=== PATIENT | male | born 1940 | race Caucasian/White ===

== ENCOUNTER → 2020-02-08 14:41 | Outpatient (CLI) | payer OTHER, SELFPAY ==
--- NOTE | 2020-02-08 14:45 | DI.CT.S_ITS ---
PROCEDURE: CT HEAD/BRAIN WO CON INDICATIONS: Unspecified injury of head, initial encounter TECHNIQUE: Noncontrast 4.5 mm thick angled axial sections acquired from the foramen magnum to the vertex, with coronal and sagittal reformats. For radiation dose reduction, the following was used: automated exposure control, adjustment of mA and/or kV according to patient size. COMPARISON: [facility], CT, CT BRAIN WO CON, 04/11/2016, 5:28. FINDINGS: Image quality: Diagnostic. CSF spaces: Basal cisterns are patent. No extra-axial fluid collections. Ventricles are prominent with associated parenchymal volume loss, similar to the prior study. Brain: No midline shift. No intracranial masses or hemorrhage. Henriquez-white matter interface is normal. Areas of low attenuation are seen within the periventricular and deep white matter of the supratentorial brain. Skull and face: Calvarium and visualized facial bones are intact, without suspicious lesions. Sinuses: Visualized sinuses and mastoids are clear. IMPRESSION: Stable head CT. No acute intracranial hemorrhage. Dictated by: Rj Phoenix M.D. on 02/08/2020 at 14:21 Approved by: Rj Phoenix M.D. on 02/08/2020 at 14:22
== END ==
PROVIDERS: PCP Internal Medicine; Referring Provider Physician Assistant; Visit Provider Physician Assistant
DX: S09.90XA Unspecified injury of head, initial encounter (principal); X58.XXXA Exposure to other specified factors, initial encounter
CPT/HCPCS: 70450

== ENCOUNTER → 2020-05-22 09:24 | Outpatient (CLI) | payer OTHER, SELFPAY ==
[2020-05-22 10:46] LABS: Alanine Aminotransferase 19 IU/L (<50); Albumin 4.4 g/dL (3.5-5.0); Albumin Globulin Ratio 1.4 (1.0-2.8); Alkaline Phosphatase 89 U/L (38-126); Aspartate Aminotransferase 44 IU/L (17-59); BUN Creatinine Ratio 16.5 (6-22); Bilirubin Total 1.5 mg/dL (0.2-1.3); Blood Urea Nitrogen 16 mg/dL (9-20); Calcium 8.7 mg/dL (8.4-10.2); Carbon Dioxide 28 mmol/L (22-32); Chloride 107 mmol/L (98-107); Cholesterol 141 mg/dL (140-199); Estimated Glomerular Filt Rate > 60.0 mL/min (>60); Globulin 3.1 g/dL (1.7-4.1); Glucose 96 mg/dL (80-110); HDL Cholesterol 69 mg/dL (40-60); LDL Cholesterol Calculated 63 mg/dL (<100); Sodium 137 mmol/L (137-145); Total Protein 7.5 g/dL (6.3-8.2); Triglycerides 45 mg/dL (35-150)
[2020-05-22 11:37] LABS: HEMOLYSIS 53 (0-50)
[2020-05-22 11:44] LABS: Potassium 6.9 mmol/L (3.4-5.1)
[2020-05-22 11:59] LABS: Add Manual Diff / Slide Review YES; Mean Corpuscular Hemoglobin 34.3 PG (26-34); Mean Corpuscular Volume 101.3 fL (80-100); Platelet Count 183 X10^3/uL (150-400); Red Blood Cell Count 3.55 X10^6/uL (4.5-5.9); Red Cell Distribution Width 13.9 % (11.6-14.8); White Blood Cell Count 5.1 X10^3/uL (4.5-11.0)
[2020-05-22 12:00] LABS: Hematocrit 35.9 % (41-53); Hemoglobin 12.2 g/dL (13.5-17.5); Mean Corpuscular HGB Conc 33.9 % (30-36)
[2020-05-22 12:06] LABS: Neutrophils Absolute Manual 1785 /uL (3000-5900); Total Cells Counted 100
[2020-05-22 12:07] LABS: Macrocytosis 1+
== END ==
PROVIDERS: PCP Internal Medicine; Referring Provider Internal Medicine; Visit Provider Internal Medicine
DX: Z00.00 Encounter for general adult medical examination without abnormal findings (principal); I48.91 Unspecified atrial fibrillation; M15.0 Primary generalized (osteo)arthritis; C61 Malignant neoplasm of prostate
CPT/HCPCS: 36415; 80053; 80061; 84153; 85025

== ENCOUNTER → 2020-05-24 08:47 | Outpatient (CLI) | payer OTHER, SELFPAY ==
[2020-05-24 09:24] LABS: Reticulocyte Count, Percent 2.1 % (0.87-2.60)
[2020-05-24 09:28] LABS: HEMOLYSIS < 15 (0-50); Iron 111 ug/dL (49-181)
[2020-05-24 09:38] LABS: Percent Iron Saturation 36 % (20-50); Total Iron Binding Capacity 307 ug/dL (261-462); Transferrin 227 mg/dL (206-381)
[2020-05-24 10:28] LABS: Folate 11.6 ng/mL (2.76-20.0); Vitamin B12 250 pg/mL (239-931)
== END ==
PROVIDERS: PCP Internal Medicine; Referring Provider Internal Medicine; Visit Provider Internal Medicine
DX: D64.9 Anemia, unspecified (principal)
CPT/HCPCS: 36415; 82607; 82746; 83540; 83550; 85045

== ENCOUNTER → 2020-11-10 15:35 | Outpatient (CLI) | payer OTHER, SELFPAY ==
[2020-11-11 11:59] LABS: Basophils Absolute Auto 100 /uL (0-100); Basophils Percent Auto 1.1 % (0-2); Eosinophils Absolute Auto 100 /uL (0-450); Eosinophils Percent Auto 2.1 % (2-4); Hematocrit 22.8 % (41-53); Hemoglobin 12.1 g/dL (13.5-17.5); Lymphocytes Absolute Auto 1800 /uL (1100-4500); Lymphocytes Percent Auto 34.4 % (25-40); Mean Corpuscular HGB Conc 52.9 % (30-36); Mean Corpuscular Hemoglobin 71.3 PG (26-34); Monocytes Absolute Auto 700 /uL (0-900); Monocytes Percent Auto 13.2 % (3-14); Neutrophils Absolute Auto 2600 /uL (1500-7000); Neutrophils Percent Auto 49.2 % (50-75); Platelet Count 197 X10^3/uL (150-400); Red Blood Cell Count 1.69 X10^6/uL (4.5-5.9); Red Cell Distribution Width 13.9 % (11.6-14.8); White Blood Cell Count 5.3 X10^3/uL (4.5-11.0)
[2020-11-11 13:23] LABS: Add Manual Diff / Slide Review SLIDE REVIEW
[2020-11-11 14:21] LABS: Rouleaux 2+
[2020-11-11 14:24] LABS: Polychromasia 2+
[2020-11-11 14:26] LABS: Mean Corpuscular Volume 134.7 fL (80-100)
== END ==
PROVIDERS: PCP Internal Medicine; Referring Provider Internal Medicine; Visit Provider Internal Medicine
DX: I48.91 Unspecified atrial fibrillation (principal); D64.9 Anemia, unspecified
CPT/HCPCS: 85025

== ENCOUNTER → 2020-11-17 10:13 | Outpatient (CLI) | payer OTHER, SELFPAY ==
[2020-11-17 11:54] LABS: HEMOLYSIS < 15 (0-50); Iron 120 ug/dL (49-181)
[2020-11-17 12:05] LABS: Percent Iron Saturation 38 % (20-50); Total Iron Binding Capacity 317 ug/dL (261-462); Transferrin 249 mg/dL (206-381)
[2020-11-17 12:24] LABS: Basophils Absolute Auto 100 /uL (0-100); Basophils Percent Auto 1.7 % (0-2); Eosinophils Absolute Auto 100 /uL (0-450); Eosinophils Percent Auto 1.9 % (2-4); Hemoglobin 12.1 g/dL (13.5-17.5); Lymphocytes Absolute Auto 1800 /uL (1100-4500); Lymphocytes Percent Auto 35.9 % (25-40); Monocytes Absolute Auto 600 /uL (0-900); Monocytes Percent Auto 12.7 % (3-14); Neutrophils Absolute Auto 2400 /uL (1500-7000); Neutrophils Percent Auto 47.8 % (50-75); Red Cell Distribution Width 15.7 % (11.6-14.8)
[2020-11-17 12:26] LABS: Ferritin 143 ng/mL (18-464)
[2020-11-17 12:56] LABS: Folate 13.7 ng/mL (2.76-20.0); Vitamin B12 269 pg/mL (239-931)
[2020-11-17 13:32] LABS: Add Manual Diff / Slide Review SLIDE REVIEW
[2020-11-17 14:00] LABS: Platelet Estimate Adequate on smear
[2020-11-17 14:02] LABS: Rouleaux 3+
[2020-11-17 14:04] LABS: Platelet Count 174 X10^3/uL (150-400)
== END ==
PROVIDERS: PCP Internal Medicine; Referring Provider Internal Medicine; Visit Provider Internal Medicine
DX: D64.9 Anemia, unspecified (principal); I48.91 Unspecified atrial fibrillation
CPT/HCPCS: 36415; 82607; 82728; 82746; 83540; 83550; 85025

== ENCOUNTER 2022-05-24 10:58 | Emergency (ER) | payer OTHER, SELFPAY ==
[2022-05-24 11:14] VITALS: BP 158/96; PULSE 85; RESP 15; TEMP 36; O2SAT 99; BMI 25.4
--- NOTE | 2022-05-24 12:19 | ED.EPISTAXIS ---
HPI - Epistaxis <YARELY Dunbar - Last Filed: 05/24/22 12:25> General Chief complaint: Nasal Problem Stated complaint: Nose bleed over 1hr Time Seen by Provider: 05/24/22 12:02 Source: patient Mode of arrival: Ambulatory History of Present Illness HPI Narrative: This is a 81-year-old male with history of atrial fibrillation and chronic anticoagulation on 20 mg of Xarelto daily who presents to the emergency department with right-sided epistaxis which started while he was at his ophthalmology appointment 1 hour prior. His primary care provider is Dr. Alem zavala, he states that he became congested with the smoke in the air 1 week ago and had some crusting nasal discharge which he picked and started on nosebleed last night. He states it took a long time to get this to stop. He denies any other inappropriate bleeding. Related Data Allergies Allergy/AdvReac Type Severity Reaction Status Date / Time No Known Drug Allergies Allergy Verified 05/24/22 11:14 Review of Systems <YARELY Dunbar - Last Filed: 05/24/22 12:25> Review of Systems Narrative: Review of systems is negative for acute abnormalities unless otherwise noted in HPI Patient History <YARELY Dunbar - Last Filed: 05/24/22 12:25> Social History Smoking Status: Unknown if ever smoked Smoking Status: Unknown if ever smoked alcohol intake frequency: 0-2 drinks per day Substance Use Type: does not use Exam <YARELY Dunbar - Last Filed: 05/24/22 12:25> Narrative Exam Narrative: Reviewed vitals signs and nursing notes. General: cooperative, comfortable, in no acute distress, well groomed HEENT: symmetrical facial expressions, moist mucous membranes, dry blood in anterior right naris, very superficial and tiny vein on the anterior Kiesselbach plexus of the right Nare. No current bleeding, left naris with no dry blood, no bleeding, posterior pharynx without bleeding. Patient without nasal obstruction, no sinus tenderness to palpation, afebrile without tachycardia, shortness of breath, chest pain, lightheadedness, dizziness, or any other complaint. He states that he was congested and picked his nose as the cause of his bleeding. He denies any congestion, sore throat, upper respiratory symptoms whatsoever. Initial Vital Signs Initial Vital Signs: Vital Signs Temperature 96.8 F L 05/24/22 11:14 Pulse Rate 85 05/24/22 11:14 Respiratory Rate 15 05/24/22 11:14 Blood Pressure 158/96 H 05/24/22 11:14 Pulse Oximetry 99 05/24/22 11:14 Oxygen Delivery Method 05/24/22 11:14 <Adilene Tolentino DO - Last Filed: 05/28/22 02:47> Initial Vital Signs Initial Vital Signs: Vital Signs Temperature 96.8 F L 05/24/22 11:14 Pulse Rate 85 05/24/22 11:14 Respiratory Rate 15 05/24/22 11:14 Blood Pressure 158/96 H 05/24/22 11:14 Pulse Oximetry 99 05/24/22 11:14 Oxygen Delivery Method 05/24/22 11:14 Course <YARELY Dunbar - Last Filed: 05/24/22 12:25> Orders Ordered: Discontinued Medications Oxymetazoline HCl (Oxymetazoline Nasal [place] 15 Ml) 2 sprays NASAL NOW ONE Stop: 05/24/22 12:13 Last Admin: 05/24/22 12:24 Dose: 2 sprays Documented By: KF Vital Signs Vital signs: Vital Signs - 8 hr 05/24/22 11:14 Temperature 96.8 F L Pulse Rate 85 Respiratory Rate 15 Blood Pressure 158/96 H Pulse Oximetry 99 Oxygen Delivery Method Room Air <Adilene Tolentino DO - Last Filed: 05/28/22 02:47> Orders Ordered: Discontinued Medications Oxymetazoline HCl (Oxymetazoline Nasal [place] 15 Ml) 2 sprays NASAL NOW ONE Stop: 05/24/22 12:13 Last Admin: 05/24/22 12:24 Dose: 2 sprays Documented By: KF Vital Signs Vital signs: Vital Signs - 8 hr 05/24/22 11:14 Temperature 96.8 F L Pulse Rate 85 Respiratory Rate 15 Blood Pressure 158/96 H Pulse Oximetry 99 Oxygen Delivery Method Room Air MDM - Epistaxis <YARELY Dunbar - Last Filed: 05/24/22 12:25> MDM Narrative Medical decision making narrative: This is a pleasant 81-year-old gentleman who presents to the emergency department with 2 episodes of epistaxis in the last 24 hours after he reportedly picked his nose and had a anterior slow bleed for approximately 1 hour today while he was at the ophthalmology appointment. Patient states that the auto service station attendant told him he was going to need to have laser surgery and patient thinks that it shot his blood pressure her up in he is started bleeding afterwards. In the emergency department he does not have any bleeding at this time, there is a very superficial and tiny vessels which is not bleeding at this time the anterior Kiesselbach plexus of the right Nare, it was very small and discussed the risk versus reward of cauterizing, and encourage patient to instead use saline nasal spray, vaseline as long as there is no oxygen administration, and if he starts bleeding again to use Afrin soaked on a cotton swab with the nasal clamp. He was provided 2 nasal clamps, Afrin nasal spray and given instructions to not use more for than 3 days in a row. He was given Dr. Barker's contact information if this is recurrent, he was also directed his die drawing checker if he has any other inappropriate bleeding and to return to the emergency department if they have difficulty stopping bleeding. Patient does not have any neuro deficits on my exam, he is talkative and quite funny, ambulatory without any weakness or signs of blood loss. Patient is appropriate and amenable to discharge home. Vital signs are stable on repeat examination is unremarkable. Patient has been informed of results. Patient has been given strict return to ER precautions for any new or worsening symptoms. Patient understands to follow up closely with outpatient providers as instructed. Patient understands plan and agrees to discharge home. All questions and concerns answered at this time. Discharge Plan Departure Patient Disposition: Home Clinical Impression: Acute anterior epistaxis, Anticoagulant long-term use Instructions: Nosebleed Activity Restrictions/Additional Instructions: *You have been diagnosed with recurrent anterior right sided nosebleed. Also called epistaxis. Since you have reason to be congested, this is most likely related to that, please use saline nasal spray and consider using a humidifier to add moisture to the air and inside of your nose. Please avoid picking your nose since you are on an anticoagulant and this has happened a few times. Please use the nasal clamps as we discussed, if you can apply a nasal clamp and stop the bleeding, when your home, take that off and blow out the clot, spray Afrin either on a cotton ball or inside your near and apply the clamp again until the bleeding stops. If you can not get the bleeding to stop, please return to the emergency department we have many more tricks partially. Follow-up with your die drawing checker if you have recurrent bleeding about your anticoagulant. If you develop a sore throat, fever, fatigue and ongoing dizziness, consider that this might be a viral illness and please get tested for COVID and/or other respiratory illnesses. Thank you for coming in for evaluation, please stay hydrated and return if you need to. *What to do: *Please continue to take your regular medications as directed. [ ] New medication prescriptions sent to your pharmacy: [ ] [ ] New medication written as a paper prescription [x ] No new medications given *Please follow up with your primary care provider in 2-3 days, call for an appointment. Let them know you were seen in the Emergency Department and that we asked that you be seen for follow-up. We will electronically transmit a record of today's note if your PCP is in our system *If you do not have a primary care provider please contact [phone] to establish care with one of [facility] primary care providers. *Return to Emergency Department if you should have any new, worsening, or concerning symptoms, such as [fever greater than 101F, chills, worsening pain, persistent vomiting or other bothersome symptoms]. Referrals: Freddie Barker MD [Physician] - Charly Martínez MD [Physician] - Visit Report Forms: Patient Portal/API <Adilene Tolentino DO - Last Filed: 05/28/22 02:47> Cosign ED Attending Coslakshmiature Attestation: I was immediately available in the department for consultation. Documentation has been reviewed. I agree with assessment and plan.
[2022-05-24] MEDS: OXYMETAZOLINE NASAL SPRAY 15 ML 2 SPRAYS NASAL (12:24)
== END 2022-05-24 12:25 | disposition home or self-care (01) ==
PROVIDERS: Emergency Provider Nurse Practitioner Critical Care Medicine; PCP Internal Medicine
DX: R04.0 Epistaxis (principal); Z79.01 Long term (current) use of anticoagulants
CPT/HCPCS: 99282; A9270

== ENCOUNTER → 2022-10-31 09:14 | Outpatient (CLI) | payer OTHER, SELFPAY ==
--- NOTE | 2022-10-31 | DI.ECHO.S_ITS ---
[facility] +---------+ : : [address] : [place] : : : : [address] : : : : Phone: [phone]---------+ Echocardiogram Report + + :Name: VIKASH MENDOZA Study Date: 10/31/2022 Height: 69 in : :[facility] ReadingLocation: Weight: 172 lb : : Gender: Male BSA: 1.9 m2 : :: 1940 Age: 82 yrs BP: 141/84 mmHg: :Reason For Study: ATRIAL FIBRILLATION : :Ordering Physician: LUIS CARLOS, : :MANOLO Performed By: ROCÍO BAHENA : :Referring: MANOLO BHARDWAJ : + + Interpretation Summary 1) Normal left ventricular size and thickness with low normal systolic function (EF 50-55%). 2) The right ventricle is mildly dilated. The right ventricular systolic function is normal. 3) There is mild to moderate aortic regurgitation. 4)There is mild to moderate tricuspid regurgitation. 5) The right ventricular systolic pressure is estimated to be at least 44 mmHg based on an estimated right atrial pressure of 3 mm Hg. 6) No prior Echo available for comparison. Procedure: A two-dimensional transthoracic echocardiogram with color flow and Doppler was performed. The study quality was technically adequate. There is no prior echocardiogram noted for this patient. The patient was in atrial fibrillation with heart rates between 63-96 bpm during the exam. Left Ventricle: The left ventricle is normal in size. There is normal left ventricular wall thickness. Left ventricular systolic function is low normal. The ejection fraction is estimated to be 50-55%. There are no obvious focal wall motion abnormalities noted but poor endocardial definition reduces the sensitivity for the detection of such. Right Ventricle: The right ventricle is mildly dilated. The right ventricular systolic function is normal. Atria: The left atrium is moderately dilated. The right atrium is moderately dilated. There is no Doppler evidence for an interatrial shunt. Mitral Valve: The mitral valve leaflets appear mildly thickened, but open well. There is mild mitral regurgitation. Aortic Valve: The aortic valve is trileaflet. The aortic valve opens well. The aortic valve is mildly calcified. There is no aortic valve stenosis. There is mild to moderate aortic regurgitation. Tricuspid Valve: The tricuspid valve is normal. There is mild to moderate tricuspid regurgitation. The right ventricular systolic pressure is estimated to be at least 44 mmHg based on an estimated right atrial pressure of 3 mm Hg. Pulmonic Valve: The pulmonic valve is not well seen, but is grossly normal. There is mild pulmonic regurgitation. Great Vessels: The aortic root is normal size. The ascending aorta is at the upper limits of normal in size. The IVC is of normal diameter and collapses greater than 50% with a sniff. This suggests a low right atrial pressure of 3 mm Hg. Pericardium/ Pleura There is no pericardial effusion. There is no pleural effusion. MMode/2D Measurements & Calculations LVIDd: 4.5 cm LVOT diam: 2.2 cm LVIDs: 3.4 cm Ao root diam: 3.5 cm FS: 24.4 % asc Aorta Diam: 3.8 cm IVSd: 0.70 cm LVPWd: 0.80 cm LV ferrell. diameter/BSA (cm/m^2): 2.3 LV sys. diameter/BSA (cm/m^2): 1.8 LA A2 area: 31.2 cm2 RA long axis: 5.8 cm LA A4 area: 21.6 cm2 LA length (vol): 6.4 cm LA vol: 90.1 ml LA vol index: 46.5 ml/m2 RVD1 (basal): 4.5 cm LVLs ap4: 6.1 cm LVLd ap2: 7.9 cm TAPSE_phl: 1.7 cm LVLs ap2: 6.6 cm Doppler Measurements & Calculations Ao V2 max: 115.0 cm/sec LVOT Max Bc: 71.8 cm/sec Ao V2 mean: 90.5 cm/sec LV V1 max P.1 mmHg Ao max P.3 mmHg LV V1 VTI: 16.9 cm Ao mean P.0 mmHg GITA(I,D): 2.7 cm2 Ao V2 VTI: 23.5 cm GITA(V,D): 2.4 cm2 sev ratio: 0.72 GITA indexed to BSA (cm^2/m^2): 1.4 AI P1/2t: 595.5 msec AI dec slope: 180.0 cm/sec2 MV E max bc: 87.0 cm/sec TR max bc: 320.0 cm/sec MV A max bc: 40.7 cm/sec TR max P.0 mmHg MV E/A: 2.1 PA V2 max: 81.8 cm/sec Med Peak E' Bc: 11.2 cm/sec PA V2 mean: 60.7 cm/sec E/E' med: 7.8 PA mean P.0 mmHg Lat Peak E' Bc: 10.5 cm/sec PA pr(Accel): 21.9 mmHg E/E' lat: 8.3 E/e' average: 8.0 MV dec time: 0.20 sec SV(LVOT): 64.2 ml AV P1/2t-pr_phl: 597.0 msec AV VR_phl: 0.62 GITA(VTI)/BSA_phl: 1.4 MV P1/2t-pr_phl: 60.0 msec Reading Physician:03:41 PM
== END ==
PROVIDERS: PCP Internal Medicine; Referring Provider Internal Medicine Cardiovascular Disease; Visit Provider Internal Medicine Cardiovascular Disease
DX: I48.11 Longstanding persistent atrial fibrillation (principal); I08.3 Combined rheumatic disorders of mitral, aortic and tricuspid valves
CPT/HCPCS: 93306